=== PATIENT | female | born 1955 | race Caucasian/White ===

== ENCOUNTER 2018-05-07 13:01 | Emergency (ER) | payer MEDICARE ==
[~2018-05-07] VITALS: Ht 157.5 cm; Wt 81.8 kg
[2018-05-07 13:21] VITALS: Ht 157.5 cm; Wt 81.8 kg
[2018-05-07] MEDS ORDERED: BAYER CHEWABLE81 MG PO (13:22)
[2018-05-07 14:09] LABS: BASOPHILS 0.4 % (0-2); HEMATOCRIT 42.8 % (36.0-48.0); HEMOGLOBIN 14.4 g/dL (12-16); IMMATURE GRANULOCYTES 0.1 % (0-5); LYMPHOCYTES 33.2 % (15-50); MCH 29.4 pg (26.0-34.0); MCHC 33.6 g/dL (31.0-37.0); MCV 87.3 fL (80.0-100.0); MEAN PLATELET VOLUME 8.5 fL (7.4-10.4); MONOCYTES 6.4 % (2-11); NEUTROPHILS 54.9 % (40-80); PLATELET COUNT 273 10x3/uL (130-400); WBC 7.7 10x3/uL (4.8-10.8)
[2018-05-07 14:18] LABS: APTT 30.6 SECONDS (22.8-39.4); INR 0.96 (0.85-1.17); PROTIME 12.2 SECONDS (11.6-15.0)
[2018-05-07] MEDS ORDERED: VOLTAREN75 MG PO (15:39)
[2018-05-07] MEDS ORDERED: MUPIROCIN22 GM TOPICAL (15:47)
[2018-05-07 15:58] VITALS: BP 143/92
== END 2018-05-07 15:59 | disposition home or self-care (01) ==
LOC: D.ER 13:01
PROVIDERS: Family Medicine
DX: S02.2XXA Fracture of nasal bones, initial encounter for closed fracture (principal); W10.9XXA Fall (on) (from) unspecified stairs and steps, initial encounter; Y93.89 Activity, other specified; Y92.019 Unspecified place in single-family (private) house as the place of occurrence of the external cause; S00.81XA Abrasion of other part of head, initial encounter; Z79.01 Long term (current) use of anticoagulants; Z86.73 Personal history of transient ischemic attack (TIA), and cerebral infarction without residual deficits